=== PATIENT | male | born 1980 | race Caucasian/White ===

== ENCOUNTER 2019-11-14 00:01 | Inpatient (IN) | payer OTHER ==
[~2019-11-14] VITALS: Ht 182.9 cm; Wt 69.9 kg
[~2019-11-14 00:01] MED LIST: ALBU90OI INH; AMOX500 PO; AZIT250 PO; BENZ100A PO; CEPH500 PO; CLOT10 SUSW; CRUTCH3 USE; DOXY100 PO; ERYT.5TO OD; ERYT.5TO OU; HYDACE5; HYDACE5 PO; IBUP600 PO; LISHYD2025 PO; LISI20; OXYACE5T PO; PENVK500; PENVK500 PO; PERM5TC TOP; PRED20 PO; PROCODE120 PO; PROM25 PO; RANI150; RANI150 PO; RXOXYACE PO
[2019-11-14 00:59] LABS: BASOPHILS ABSOLUTE AUTO 0.09 K/mm3 (0.00-0.23); BASOPHILS PERCENT AUTO 1 % (0-2); EOSINOPHILS ABSOLUTE AUTO 0.26 K/mm3 (0.00-0.68); EOSINOPHILS PERCENT AUTO 2 % (0-6); Hematocrit 41.6 % (37.0-53.0); Hemoglobin 13.2 g/dL (13.5-17.5); IMMATURE GRAN ABSOLUTE AUTO 0.03 K/mm3 (0.00-0.10); IMMATURE GRAN PERCENT AUTO 0 % (0-1); LYMPHOCYTES ABSOLUTE AUTO 1.43 K/mm3 (0.84-5.20); LYMPHOCYTES PERCENT AUTO 13 % (21-46); MONOCYTES ABSOLUTE AUTO 0.39 K/mm3 (0.16-1.47); MONOCYTES PERCENT AUTO 4 % (4-13); Mean Corpuscular HGB 26.7 pg (26.0-34.0); Mean Corpuscular HGB Conc 31.7 g/dL (31.5-36.5); Mean Corpuscular Volume 84 fL (80-100); Mean Platelet Volume 9.2 fL (9.1-12.4); NEUTROPHILS ABSOLUTE AUTO 8.59 K/mm3 (1.96-9.15); NEUTROPHILS PERCENT AUTO 80 % (41-73); Platelet Count 283 K/mm3 (150-400); RDW Coefficient Variation 15.1 % (11.7-14.2); RDW Standard Deviation 45.7 fL (35.1-46.3); Red Blood Cell Count 4.94 M/mm3 (4.30-5.90); White Blood Cell Count 10.79 K/mm3 (4.00-11.30)
[2019-11-14 01:19] LABS: Albumin, Blood 3.4 g/dL (3.4-5.0); Bilirubin, Total 0.6 mg/dL (0.1-1.0); Bun/Creatinine Ratio 23.2 (12.0-20.0); Creatinine, Blood 2.2 mg/dL (0.60-1.20); Globulin, Blood 3.4 g/dL (2.2-4.0); Potassium, Blood 4.2 mmol/L (3.5-5.5); Total Protein, Blood 6.8 g/dL (6.4-8.2); Troponin I 0.099 ng/mL (0.000-0.040)
[2019-11-14 10:26] LABS: Bun/Creatinine Ratio 24.2 (12.0-20.0); Calcium, Blood 8.7 mg/dL (8.5-10.1); Creatinine, Blood 1.9 mg/dL (0.60-1.20); Magnesium, Blood 1.7 mg/dL (1.6-2.4); Potassium, Blood 3.6 mmol/L (3.5-5.5)
--- NOTE | 2019-11-14 15:13 | NUR ---
echocardiogram completed
[2019-11-14 16:59] LABS: U Amphetamine Screen DETECTED; U Barbituate Screen Not Detected; U Benzodiazapine Screen Not Detected; U Cocaine Screen Not Detected; U Methadone Screen Not Detected; U Methamphetamine Screen DETECTED; U Opiates Screen Not Detected; U Phencyclidine Screen Not Detected
[2019-11-14 17:00] LABS: U Buprenorphine Screen Not Detected; U Cannabinoids Screen DETECTED; U Oxycodone Screen Not Detected; U Propoxyphene Screen Not Detected
--- NOTE | 2019-11-14 19:13 | NUR ---
SHIFT SUMMARY. 1733 PT ADMITTED TO MEDICAL FLOOR VIA W/C. A&OX4, INDEPENDENT IN ROOM. PT DENIES SOB, N/V, AND PAIN. BREATHING SHALLOW ALTHOUGH LUNGS CLEAR. FAMILY AT BEDSIDE.
--- NOTE | 2019-11-14 19:16 | NUR ---
DR. DE LUNA AT BEDSIDE AT THIS TIME.
--- NOTE | 2019-11-15 03:58 | NUR ---
REAL ESTATE OFFICE SUPERVISOR SUMMARY PT A/OX4. SLEPTED WELL THROUGHOUT THE NIGHT. INDEPENDENT IN ROOM. MEDICATED FOR HEACHACHE WITH PO TYLENOL ONCE THIS SHIFT. VITALS ARE STABLE. NO ACUTE CHANGES. S/O STAYED ALL NIGHT WITH PT. CALL SANTANA WITHIN REACH, BED IN LOWEST POSITION.
[2019-11-15 06:06] LABS: Alanine Aminotransfer (ALT/SGP 62 U/L (12-78); Albumin, Blood 3.4 g/dL (3.4-5.0); Albumin/Globulin Ratio 0.9 (0.8-1.8); Alk Phos 152 U/L (50-136); Anion Gap 7 mmol/L (6-16); Aspartate Aminotrans (AST/SGOT 26 U/L (12-37); Bilirubin, Total 0.8 mg/dL (0.1-1.0); Blood Urea Nitrogen 46 mg/dL (8-24); Bun/Creatinine Ratio 21.8 (12.0-20.0); CHOL/HDL RATIO 5.4; CO2, Blood 25 mmol/L (21-32); Chloride, Blood 106 mmol/L (98-108); Cholesterol 222 mg/dL (50-200); Creatinine, Blood 2.11 mg/dL (0.60-1.20); Globulin, Blood 3.7 g/dL (2.2-4.0); Glomerular Filtration Rate 37 (60-); Glucose, Blood 96 mg/dL (70-99); HDL Cholesterol 41 mg/dL (>39); LDL/HDL RATIO 3.7; Low Density Lipoprotein Chol 154 mg/dL (0-110); Potassium, Blood 3.7 mmol/L (3.5-5.5); Sodium, Blood 138 mmol/L (136-145); Total Protein, Blood 7.1 g/dL (6.4-8.2); Triglycerides 137 mg/dL (30-140); Very Low Density Lipoprot Chol 27 mg/dL (6-28)
--- NOTE | 2019-11-15 19:12 | NUR ---
SHIFT SUMMARY. PT DENIES PAIN, SOB, N/V. PT REPORTS THAT HE IS BREATHING BETTER THAN YESTERDAY. NO NEW CHANGES OR CONCERNS. PT GIVEN VERABL AND WRITTEN EDUCATION ON NEW MEDICATIONS, DIET, AND CHF.
--- NOTE | 2019-11-15 22:39 | NUR ---
3243 RECIEVED CALL FROM [employer] NATANAEL. SHE TOLD ME PT'S HR HAS SLOWLY INCREASED FROM 80-90'S TO 108-109 STARTING AROUND 30 MIN AGO. THIS WAS AROUND THE TIME I WENT TO THE PT'S ROOM WHEN THE PT THOUGHT IT MIGHT HAVE BEEN HIS ENTERING THE ROOM. HE STATED THAT HE DOES NOT HAVE A GOOD HISTORY WITH HER AND REFUSE TO GIVE HER ANY INFORMATION ABOUT HIS STATUS. HE TOLD ME THAT BEFORE HE SAW WHO WAS ENTERING THE ROOM, HE GOT ANXIOUS. PT'S HR STAYED IN THE LOW 100'S FOR AROUND 30 MIN. PT STATED HE ALSO CALLED HIS DAUGHTER THAT HE HAS NOT SPOKEN TO FOR 3 YEARS SO HE GOT EXCITED AND NERVOUS AT THE SAME TIME. I CALLED [employer] TO UPDATE HER. PT'S HR CAME DOWN TO 95 AFTER GETTING OFF THE PHONE. WILL CONTINUE TO MONITOR.
--- NOTE | 2019-11-16 04:55 | NUR ---
COMBINATION PRESSER SUMMARY PT A/O X4 AND INDEPENDENT IN ROOM. HAS NOT COMPLAINED OF HEADACHE OR OTHER PAIN TONIGHT. SLEPT WELL. MOM STAYED WITH PT ALL NIGHT. NO ACUTE CHANGES. CALL SANTANA WITHIN REACH.
[2019-11-16 05:34] LABS: Hematocrit 44.2 % (37.0-53.0); Hemoglobin 13.6 g/dL (13.5-17.5)
[2019-11-16 06:01] LABS: Albumin, Blood 3.1 g/dL (3.4-5.0); Anion Gap 7 mmol/L (6-16); Blood Urea Nitrogen 52 mg/dL (8-24); Bun/Creatinine Ratio 26.5 (12.0-20.0); CO2, Blood 24 mmol/L (21-32); Calcium, Blood 8.8 mg/dL (8.5-10.1); Chloride, Blood 108 mmol/L (98-108); Creatinine, Blood 1.96 mg/dL (0.60-1.20); Glomerular Filtration Rate 41 (60-); Glucose, Blood 100 mg/dL (70-99); Phosphorus, Blood 3.6 mg/dL (2.5-4.9); Potassium, Blood 4.3 mmol/L (3.5-5.5); Sodium, Blood 139 mmol/L (136-145)
--- NOTE | 2019-11-16 08:08 | NUR ---
0700 PT REPORTS ACTIVE R CHEST PAIN THAT RADIATES TO R ARM AND R BACK, PT HYPERTENSIVE. NOC RN AND MARKETING LIAISON AT BEDSIDE. FAMILY AT BEDSIDE. 3 NITRO AND 25MCG OF FENTANYL WITHOUT RELIEF OF PAIN, IV HYDRALAZINE GIVEN WITH MINIMAL IMPROVEMENT OF BP, EKG AND TROPONIN DRAW COMPLETED. 0715 DR[address] DE LUNA AND DR. WALTER NOTIFIED. 0720 DR. WALTER AT BEDSIDE. 0740 DR. DE LUNA AT BEDSIDE. 0800 PT TO SALES PROFESSIONAL BILINGUAL VIA W/C. FAMILY NOTIFIED BELONGINGS WILL BE BAGGED UP AND MOVED TO ROOM IN ICU OR PCU ONCE A ROOM IS ASSIGNED.
--- NOTE | 2019-11-16 15:30 | NUR ---
PT ADMIT PT ALERT AND ORIENT ARRIVING FROM [employer] VIA W/C AND WITH RN. AMBULATORY TO BTHROOM FOR VOID ND TO BED. HYPERTENSIVE, ADVISED, TR BAND IN PLACE BUT DEFLATED AND SITE STABLE. ADFEBRILE AND NO EDEMA AND NO C/O OF CP. RA SATS WNL CLEAR AND DIM BILAT. TOLERATING PO INTAKE, NO BM AND UO ADEQUATE VIA URINAL YELLOW AND CLEAR. WILL CONT TO MONITOR
--- NOTE | 2019-11-16 17:35 | NUR ---
PT UPDATE PT ALERT AND ORIENT, DENIES PAIN, CALM AND COOP. REMAINS HYPERTENSIVE WITH 1700 COREG GIVEN AND MD NOTIFIED. RA WITH SATS WNL. CLEAR AND DIM BILAT AND NO C/O MEJIA WITH AMBULA, TR BAND SITE CDI AND STABLE. GOOD PO INTAKE UO ADEQUATE. WILL CONT TO MONITOR
--- NOTE | 2019-11-16 19:22 | NUR ---
Dr. Vázquez called and notified of pt's continued HTN. Orders recieved for 40mg Lasix PO now, and Labatolol 5mg IV PRN q4 for SBP>170.
--- NOTE | 2019-11-16 19:53 | NUR ---
ASSUMED CARE Pt presents in bed with family and friends at bedside. HTN noted, MD called, see previous notes. Alert and oriented. able to make needs known. Breathing even and unlabored. Pt able to answer questions appropriately. No acute concerns, pt educated on R arm restriction. R Radial site WNL, bandaid covering site at change of shift, tegaderm placed oversite at this time. Arm board in place. Will continue to monitor.
--- NOTE | 2019-11-17 04:51 | NUR ---
Shift Summary Pt with continued HTN throughout shift, medicated per emar. Pt with no changes to mentation, no changes to oxygen demand, remains on RA. No events on tele. R radial access site covered with tegarderm and arm board in place, site wnl. Pt up in room ad renny, steady gait. Family and friends in room with patient this shift. Pt educated this shift on heart failure and the risks of not taking medications as prescribed. Pt verbalizes understanding. No acute concerns, no declines from initial assessment, overall, no changes overnight. Will continue to monitor.
[2019-11-17 10:31] LABS: Albumin, Blood 3.3 g/dL (3.4-5.0); Albumin/Globulin Ratio 0.9 (0.8-1.8); Bilirubin, Total 0.5 mg/dL (0.1-1.0); Bun/Creatinine Ratio 20.8 (12.0-20.0); Calcium, Blood 8.9 mg/dL (8.5-10.1); Creatinine, Blood 1.78 mg/dL (0.60-1.20); Globulin, Blood 3.5 g/dL (2.2-4.0); Potassium, Blood 4.3 mmol/L (3.5-5.5); Total Protein, Blood 6.8 g/dL (6.4-8.2)
--- NOTE | 2019-11-17 15:07 | NUR ---
TRANSFER TO 340: REPORT GIVEN TO MEDICAL FLOOR RN AT THIS TIME. PT IS WALKING UP TO THE ROOM. PT AWARE TO TALK WITH RN ONCE ON MEDICAL FLOOR AND DISCUSS WALKING AROUND PRIOR TO JUST UP AND LEAVING THE ROOM. ASKED THE PT TO PLEASE ALLOW THE NURSE TO MEET HIM AND GET HIM SETTLED IN TO THE ROOM. PCT DOREEN WALKING WITH PT.
--- NOTE | 2019-11-17 15:08 | NUR ---
Assumed Care Received report from Elis RN, pt transferring from PCU to Med Rm 340. Pt arrived to unit on foot escorted by phototypesetting equipment monitor Cindy. Pt settled to room. Will continue to monitor.
--- NOTE | 2019-11-17 16:57 | NUR ---
Shift Summary Pt arrived to unit at around 1500. Pleasant and cooperative with care thus far. Independent in room, denies chest discomfort. Encouraged urinal use, urinal at bedside. Girlfriend at bedside and will be staying the night. No other concerns, will continue to monitor.
--- NOTE | 2019-11-18 04:58 | NUR ---
SHIFT SUMMARY: AM BP ELEVATED 150/110. PT DENIES CHEST PAIN/HEADACHE/PALPITATIONS/ SOB/LIGHTHEADEDNESS/DIZZINESS. R RADIAL ACCESS SITE WITH TEGADERM DRESSING IN PLACE. NO BLEEDING AT THE SITE. PT WEARING IMMOBILIZER ON R FA. NO ACUTE CHANGES OVERNIGHT. WILL CONT TO MONITOR.
[2019-11-18 06:08] LABS: Albumin, Blood 3.1 g/dL (3.4-5.0); Albumin/Globulin Ratio 0.9 (0.8-1.8); Bilirubin, Total 0.4 mg/dL (0.1-1.0); Bun/Creatinine Ratio 22.8 (12.0-20.0); Calcium, Blood 8.8 mg/dL (8.5-10.1); Creatinine, Blood 1.84 mg/dL (0.60-1.20); Globulin, Blood 3.4 g/dL (2.2-4.0); Potassium, Blood 4.2 mmol/L (3.5-5.5); Total Protein, Blood 6.5 g/dL (6.4-8.2)
--- NOTE | 2019-11-18 16:18 | NUR ---
HE IS FULLY AMBULATORY. HE HAS HAD LOTS OF VISITORS TODAY. HE HAS SMOKED BUT NOT MUCH. BP CONTROLLED TODAY WITH ROUTINE MEDS. HYDRALAZINE WAS INCREASED TO QID. HE AND HIS FAMILY ASKED A LOT OF APPROPRIATE QUESTIONS ABOUT AFTER HE LEAVES THE HOSPITAL. ALL THESE MEDICATIONS WILL BE NEW FOR HIM. NO COMPLAINTS.
--- NOTE | 2019-11-19 05:16 | NUR ---
SHIFT SUMMARY: BP 136/91. AFEB. A/OX4. PT MOTIVATED TO IMPROVE B/P'S. WORKING ON LEARNING ORDERED MEDS. COMMUNICATES NEEDS. UP AMB INDEPENDENTLY. DENIES PAIN. RADIAL ACCESS SITE WITH TEGADERM IN PLACE- C/D/I. NO SIGNS OF BLEEDING. IMMOBILIZER REMAINS IN PLACE ON RFA. NO ACUTE CHANGES. WILL CONT TO MONITOR.
[2019-11-19] MEDS ORDERED: AMLO10 PO (11:34)
[2019-11-19] MEDS ORDERED: ASPI81CH PO (11:35)
[2019-11-19] MEDS ORDERED: ATOR40TA PO (11:36)
[2019-11-19] MEDS ORDERED: FURO40 PO (11:37)
[2019-11-19] MEDS ORDERED: Coreg12.5 MG PO (11:37)
[2019-11-19] MEDS ORDERED: Isosorbide Mono30 MG PO (11:38)
[2019-11-19] MEDS ORDERED: HYDRA25 PO (11:38)
[2019-11-19] MEDS ORDERED: Prinivil10 MG PO (11:38)
--- NOTE | 2019-11-19 17:26 | NUR ---
DISCHARGE NOTE- PT WAS GIVEN VERBAL AND WRITTEN DISCHARGE INSTRUCTIONS SO AND MOTHER WERE AT THE BEDSIDE AT THE TIME OF DISCHARGE. PT IV WAS DC'D PRIOR TO DISCHARGE. PT REFUSED ESCORT AND WALKED OUT AFTER DISCHARGE TEACHING, NO FURTHER QUESTIONS AT THE TIME OF DISCHARGE. [facility] REQUEST.
== END 2019-11-19 15:33 | disposition home or self-care (01) | DRG 286 ==
LOC: ER 00:01 → ERHOLD 00:02 → MEDS 02:40 → PCU 11-16 13:34 → MEDS 11-17 15:14
PROVIDERS: Emergency Medicine; Internal Medicine; Nurse Practitioner Acute Care; ADMIT Internal Medicine
PROC: 4A023N7 Measurement of Cardiac Sampling and Pressure, Left Heart, Percutaneous Approach (ICD-10-PCS; principal; 2019-11-16)
PROC: B2111ZZ Fluoroscopy of Multiple Coronary Arteries using Low Osmolar Contrast (ICD-10-PCS; 2019-11-16)
PROC: 4A033BC Measurement of Arterial Pressure, Coronary, Percutaneous Approach (ICD-10-PCS; 2019-11-16)
PROC: B240ZZ3 Ultrasonography of Single Coronary Artery, Intravascular (ICD-10-PCS; 2019-11-16)
DX: I16.0 Hypertensive urgency (principal); I50.21 Acute systolic (congestive) heart failure; N17.9 Acute kidney failure, unspecified; F15.20 Other stimulant dependence, uncomplicated; F17.210 Nicotine dependence, cigarettes, uncomplicated; I13.0 Hypertensive heart and chronic kidney disease with heart failure and stage 1 through stage 4 chronic kidney disease, or unspecified chronic kidney disease; I25.10 Atherosclerotic heart disease of native coronary artery without angina pectoris; N18.3 Chronic kidney disease, stage 3 (moderate)
CPT/HCPCS: 36415; 71046; 76770; 80048; 80053; 80061; 80069; 83605; 83735; 83880; 84443; 84484; 85014; 85018; 85025; 85347; 87040; 90686; 92978; 93005; 93010; 93306; 93458; 93571; 96372-59; 96374-59; 96375-59; 96376; 99152; 99153; 99285-25; A9270; C1753; C1769; C1887; C1894; G0008; J0360; J1644; J1650; J1940; J2250; J3010; J7030; Q9967

== ENCOUNTER 2020-03-22 01:03 | Emergency (ER) | payer OTHER ==
[~2020-03-22] VITALS: Ht 177.8 cm; Wt 99.8 kg
[~2020-03-22 01:03] MED LIST changes: +AMLO10 PO; +ASPI81CH PO; +ATOR40TA PO; +Coreg12.5 MG PO; +FURO40 PO; +HYDRA25 PO; +Isosorbide Mono30 MG PO; +Prinivil10 MG PO
== END 2020-03-22 03:55 ==
LOC: ER 01:03
DX: I46.9 Cardiac arrest, cause unspecified (principal); I11.0 Hypertensive heart disease with heart failure; I50.9 Heart failure, unspecified; Z88.1 Allergy status to other antibiotic agents; Z79.82 Long term (current) use of aspirin; Z79.899 Other long term (current) drug therapy; F17.200 Nicotine dependence, unspecified, uncomplicated
CPT/HCPCS: 31500; 31720; 36415; 92950; 94770; 99285; J0171; J0282; J2250; J3475; J7030; J7060